=== PATIENT | female | born 1985 | race African-American/Black ===

== ENCOUNTER 2018-06-02 09:13 | Emergency (ER) | payer BC ==
[~2018-06-02] VITALS: Ht 160 cm; Wt 86.2 kg
--- NOTE | 2018-06-02 10:18 | PHYS DOC ---
Adult General Chief Complaint Chief Complaint: VAGINAL PROBLEM HPI HPI Patient is a 32 year old female presents for evaluation of heavier than normal menstrual cycle. She reports has used 3 pads this morning. States this is day 2 of her menstrual cycle, normally has cycle for 5 days. She denies . Denies dizziness or lightheadedness. Review of Systems Review of Systems Constitutional: Denies fever or chills [] Eyes: Denies change in visual acuity, redness, or eye pain [] HENT: Denies nasal congestion or sore throat [] Respiratory: Denies cough or shortness of breath [] Cardiovascular: No additional information not addressed in HPI [] GI: Denies abdominal pain, nausea, vomiting, bloody stools or diarrhea [] : Denies dysuria or hematuria [] Musculoskeletal: Denies back pain or joint pain [] Integument: Denies rash or skin lesions [] Neurologic: Denies headache, focal weakness or sensory changes [] Endocrine: Denies polyuria or polydipsia [] All other systems were reviewed and found to be within normal limits, except as documented in this note. Allergies Allergies Allergies Coded Allergies Type Severity Reaction Last Updated Verified No Known Drug Allergies 06/02/18 No Physical Exam Physical Exam Constitutional: Well developed, well nourished, no acute distress, non-toxic appearance. [] Cardiovascular:Heart rate regular rhythm, no murmur [] Lungs & Thorax: Bilateral breath sounds clear to auscultation [] Abdomen: Bowel sounds normal, soft, no tenderness, no masses, no pulsatile masses. [] Skin: Warm, dry, no erythema, no rash. [] : MODERATE VAGINAL BLEEDING IN VAULT, CERVIX NORMAL, NO TENDERNESS OR LESIONS , NO DISCHARGE-RN PRESENT AT TIME OF EXAM Neurologic: Alert and oriented X 3, normal motor function, normal sensory function, no focal deficits noted. [] Psychologic: Affect normal, judgement normal, mood normal. [] Current Patient Data Vital Signs Vital Signs Date Time Temp Pulse Resp B/P (MAP) Pulse Ox O2 Delivery O2 Flow Rate FiO2 06/02/18 10:04 98.3 80 16 144/101 (115) 100 Room Air 98.3 Lab Values Laboratory Tests Test 06/02/18 10:20 06/02/18 11:36 White Blood Count 3.9 x10^3/uL (4.0-11.0) L Red Blood Count 4.06 x10^6/uL (3.50-5.40) Hemoglobin 12.4 g/dL (12.0-15.5) Hematocrit 36.5 % (36.0-47.0) Mean Corpuscular Volume 90 fL (79-100) Mean Corpuscular Hemoglobin 31 pg (25-35) Mean Corpuscular Hemoglobin Concent 34 g/dL (31-37) Red Cell Distribution Width 13.1 % (11.5-14.5) Platelet Count 267 x10^3/uL (140-400) Neutrophils (%) (Auto) 50 % (31-73) Lymphocytes (%) (Auto) 41 % (24-48) Monocytes (%) (Auto) 5 % (0-9) Eosinophils (%) (Auto) 3 % (0-3) Basophils (%) (Auto) 1 % (0-3) Neutrophils # (Auto) 2.0 x10^3uL (1.8-7.7) Lymphocytes # (Auto) 1.6 x10^3/uL (1.0-4.8) Monocytes # (Auto) 0.2 x10^3/uL (0.0-1.1) Eosinophils # (Auto) 0.1 x10^3/uL (0.0-0.7) Basophils # (Auto) 0.0 x10^3/uL (0.0-0.2) POC Urine HCG, Qualitative Hcg negative (Negative) Laboratory Tests 06/02/18 10:20 EKG EKG [] Radiology/Procedures Radiology/Procedures [] Course & Med Decision Making Course & Med Decision Making Pertinent Labs and Imaging studies reviewed. 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 Departure Departure Impression: Primary Impression: Dysfunctional uterine bleeding Disposition: HOME, SELF-CARE Referrals: NAS ESCALERA Jr, MD Patient Instructions: Uterine Bleeding, Dysfunctional, [id number] KOBI HOLLINS PRENATAL NURSE Jun 02, 2018 10:18
[2018-06-02 10:51] LABS: BASO % 1 % (0-3); EOS # 0.1 x10^3/uL (0.0-0.7); EOS % 3 % (0-3); HEMATOCRIT 36.5 % (36.0-47.0); HEMOGLOBIN 12.4 g/dL (12.0-15.5); LYMPH # 1.6 x10^3/uL (1.0-4.8); LYMPH % 41 % (24-48); MEAN CORPUSCULAR HEMOGLOBIN 31 pg (25-35); MEAN CORPUSCULAR HGB CONC 34 g/dL (31-37); MEAN CORPUSCULAR VOLUME 90 fL (79-100); MONO # 0.2 x10^3/uL (0.0-1.1); MONO % 5 % (0-9); NEUT % 50 % (31-73); PLATELET COUNT 267 x10^3/uL (140-400); RED BLOOD COUNT 4.06 x10^6/uL (3.50-5.40); RED CELL DISTRIBUTION WIDTH 13.1 % (11.5-14.5); WHITE BLOOD COUNT 3.9 x10^3/uL (4.0-11.0)
[2018-06-02 11:56] VITALS: BP 114/71
== END 2018-06-02 12:00 | disposition home or self-care (01) ==
LOC: ER 09:13
DX: N93.8 Other specified abnormal uterine and vaginal bleeding (principal)
CPT/HCPCS: 36415; 81025; 85025; 99283

== ENCOUNTER 2019-01-13 14:52 | Emergency (ER) | payer BC ==
[~2019-01-13] VITALS: Ht 157.5 cm; Wt 83.9 kg
[2019-01-13 15:30] VITALS: BP 137/90
[2019-01-13] MEDS ORDERED: LORazepam 0.5 MG TABLET PO ONE (15:30)
--- NOTE | 2019-01-13 15:35 | PHYS DOC ---
Past Medical History Past Medical History: Anxiety Past Surgical History: Tonsillectomy Alcohol Use: None Drug Use: None Adult General Chief Complaint Chief Complaint: ANXIETY/PANIC ATTACK HPI HPI Patient is a 33-year-old female who presents to the emergency department for evaluation. She states she has history of anxiety, which has developed over the past several months. She states that yesterday, she left her while that at home, but thought she had misplaced it, and she had a lot of money in her wallet. When she found her at home, she was relieved, but her anxiety has not subsided. She is not having any hallucinations, thoughts of suicide, or any other complaints. She states that she takes escitalopram for anxiety, she had been on Xanax in the past, but not for several months. She also is requesting a work note, allow her to go back to work tomorrow. There are no alleviating or exacerbating factors to her symptoms. Review of Systems Review of Systems Constitutional: Denies fever or chills [] Eyes: Denies change in visual acuity, redness, or eye pain [] HENT: Denies nasal congestion or sore throat [] Respiratory: Denies cough or shortness of breath [] Cardiovascular: The patient denies any shortness of breath, chest pain, palpitations, or orthopnea [] GI: Denies abdominal pain, nausea, vomiting, bloody stools or diarrhea [] : Denies [] Neurologic: Denies headache, focal weakness or sensory changes [] Psychiatric: Denies suicidal or homicidal ideation, denies hallucinations. Allergies Allergies Allergies Coded Allergies Type Severity Reaction Last Updated Verified No Known Drug Allergies 06/02/18 No Physical Exam Physical Exam PHYSICAL EXAM: CONSTITUTIONAL: Well developed, well nourished HEAD: normocephalic, atraumatic EENT: PERRL, EOMI. Conjunctivae normal color, sclerae non-icteric; moist mucous membranes. NECK: Supple, non-tender; no meningismus. LUNGS: Lungs CTA, breathing even and unlabored. Normal air movement. HEART: Regular rate and rhythm, no murmur CHEST: No deformity; non-tender ABDOMEN: The abdomen is soft, and non-tender, no masses or bruits. EXTREM: Normal ROM; no deformity, no calf tenderness. Normal pulses palpable in all extremities. There is no pedal edema. SKIN: No rash; no diaphoresis NEURO: Alert; normal speech and cognition; CN's grossly intact; strength grossly intact without focal deficit. BACK: No CVA TTP. EKG EKG [] Radiology/Procedures Radiology/Procedures [] Course & Med Decision Making Course & Med Decision Making Discussed home care plan with the patient, the need for close PCP follow-up, and return precautions. Discussed importance for blood pressure monitoring although the patient states that her blood pressure does elevate when she is stressed. Return precautions were discussed in detail. Dragon Disclaimer Dragon Disclaimer This electronic medical record was generated, in whole or in part, using a voice recognition dictation system. Departure Departure Impression: Primary Impression: Anxiety Additional Impression: Elevated blood pressure reading Disposition: 01 HOME, SELF-CARE Condition: STABLE Patient Instructions: Anxiety and Panic Attacks Problem Qualifiers DOUGLAS HUDOSN MD Jan 13, 2019 15:35
== END 2019-01-13 15:44 | disposition home or self-care (01) ==
LOC: ER 14:52
DX: F41.9 Anxiety disorder, unspecified (principal); R03.0 Elevated blood-pressure reading, without diagnosis of hypertension
CPT/HCPCS: 99284

== ENCOUNTER 2019-07-19 03:53 | Emergency (ER) | payer BC ==
[~2019-07-19] VITALS: Ht 157.5 cm; Wt 83.9 kg
[2019-07-19 04:25] VITALS: BP 146/101
--- NOTE | 2019-07-19 04:38 | PHYS DOC ---
Past Medical History Past Medical History: Anxiety Past Surgical History: Tonsillectomy Smoking Status: Never Smoker Alcohol Use: Rarely Drug Use: None Adult General Chief Complaint Chief Complaint: HEADACHE HPI HPI 33yo female with underlying history of anxiety, migraine headaches presents to the emergency department for medical clearance and return to work. Patient states she's had a headache of which is since resolved itself. She states she was told she needed a return to work note and that she was cleared to go back to work. Patient has history of migraine, no concern for infectious etiology. All intensive purposes she is cleared to go back to work. Patient denies any chest pain, shortness breath, nausea, vomiting, headache or visual change at this time. All other ROS negative unless documented in HPI Review of Systems Review of Systems See Above Allergies Allergies Allergies Coded Allergies Type Severity Reaction Last Updated Verified No Known Drug Allergies 06/02/18 No Physical Exam Physical Exam See Above Constitutional: Well developed, well nourished, no acute distress, non-toxic appearance. [] HENT: Normocephalic, atraumatic, bilateral external ears normal, oropharynx moist, no oral exudates, nose normal. [] Eyes: PERRLA, EOMI, conjunctiva normal, no discharge. [] Cardiovascular:Heart rate regular rhythm, no murmur [] Lungs & Thorax: Bilateral breath sounds clear to auscultation [] Skin: Warm, dry, no erythema, no rash. [] Neurologic: Alert and oriented X 3, no focal deficits noted. [] Psychologic: Affect normal, judgement normal, mood normal. [] EKG EKG [] Radiology/Procedures Radiology/Procedures [] Course & Med Decision Making Course & Med Decision Making Pertinent Labs and Imaging studies reviewed. (See chart for details) [] 33yo female with underlying history of anxiety, migraine headaches presents to the emergency department for medical clearance and return to work. Patient states she's had a headache of which is since resolved itself. She states she was told she needed a return to work note and that she was cleared to go back to work. Patient has history of migraine, no concern for infectious etiology. All intensive purposes she is cleared to go back to work. Patient denies any chest pain, shortness breath, nausea, vomiting, headache or visual change at this time. BP elevated here in ER, observation with recheck Clonidine 0.1mg po x 1 recommend follow up with PCP for elevated BP to consider starting maintenance medication return precautions discussed with patient Conner Disclaimer Dragdavid Disclaimer This electronic medical record was generated, in whole or in part, using a voice recognition dictation system. Departure Departure Impression: Primary Impression: Headache Additional Impression: Elevated BP without diagnosis of hypertension Disposition: HOME, SELF-CARE Condition: STABLE Referrals: NO PCP (PCP) Patient Instructions: Migraine Headache, [id number] Additional Instructions: Ok to RTW without restriction No imaging obtained, STOKES resolved Tylenol/Motrin as needed Continue scheduled medications Follow up with PCP for BP follow up Clonidine 0.1mg po x 1 Problem Qualifiers Primary Impression: Headache Headache type: unspecified Headache chronicity pattern: unspecified pattern Intractability: intractable Qualified Codes: R51 - Headache APOLINAR COPELAND MD Jul 19, 2019 04:37
[2019-07-19] MEDS ORDERED: cloNIDine HCL 0.1 MG TABLET ONE (05:05)
== END 2019-07-19 05:45 | disposition home or self-care (01) ==
LOC: ER 03:53
DX: G43.909 Migraine, unspecified, not intractable, without status migrainosus (principal); I10 Essential (primary) hypertension; F41.9 Anxiety disorder, unspecified; Z90.89 Acquired absence of other organs
CPT/HCPCS: 99281